=== PATIENT | male | born 1950 | race Caucasian/White ===

== ENCOUNTER 2016-04-16 09:47 | Outpatient (CLI) | payer OTHER ==
[~2016-04-16 09:47] MED LIST: ADVAIR HF1 IN; NEURONTIN300 MG PO; ZANTAC 150 MAX150 MG PO
--- NOTE | 2016-04-16 12:56 | DIAGNOSTIC IMAGING REPORT ---
PROCEDURE: US ART LOWER EXT WITH RUIZ-B/L INDICATION: LEG PAIN BILATERAL, initial encounter TECHNIQUE: Preexercise ABIs were performed. The patient was exercised (50 toe-ups) and postexercise ABIs were repeated followed by color Doppler duplex imaging of the lower extremities. COMPARISON: None. FINDINGS: RIGHT LOWER EXTREMITY: ABIs: Resting and post exercise ABIs: Posterior tibial 1.2 and dorsalis pedis 1.1. VESSELS: Minimal plaque formation. Normal triphasic wave form throughout the right lower extremity except for biphasic wave form of the profunda femoris. RIGHT LOWER EXTREMITY PEAK SYSTOLIC VELOCITIES: External iliac: 106 cm/second. Common femoral artery: 80 70 cm/second. Profunda femoral artery: 78 cm/second. Proximal superficial femoral artery: 107 cm/second. Mid superficial femoral artery: 89 cm/second. Distal superficial femoral artery: 97 cm/second. Popliteal artery: 51 cm/second. Proximal posterior tibial artery: 45 cm/second. Proximal anterior tibial artery: 75 cm/second. Distal posterior tibial artery: 50 cm/second. Dorsalis pedis artery: 82 cm/second. LEFT LOWER EXTREMITY: ABIs: Resting ABIs: Posterior tibial and dorsalis pedis both 1.1. Post exercise ABIs: Posterior tibial 1.2 and dorsalis pedis 1.1. VESSELS: Minimal plaque formation. Normal triphasic wave form throughout the left lower extremity except for biphasic wave form of the profunda femoris. LEFT LOWER EXTREMITY PEAK SYSTOLIC VELOCITIES: External iliac: 84 cm/second. Common femoral artery: 111 cm/second. Profunda femoral artery: 75 cm/second. Proximal superficial femoral artery: 106 cm/second. Mid superficial femoral artery: 98 cm/second. Distal superficial femoral artery: 109 cm/second. Popliteal artery: 68 cm/second. Proximal posterior tibial artery: 98 cm/second. Proximal anterior tibial artery: 88 cm/second. Distal posterior tibial artery: 58 cm/second. Dorsalis pedis artery: 66 cm/second. IMPRESSION: 1. No evidence of resting or postexercise insufficiency in both lower extremities. Minor atherosclerosis without evidence of high-grade stenosis.
== END 2016-04-16 23:00 ==
LOC: US SRH 09:47
DX: M79.604 Pain in right leg (principal); M79.605 Pain in left leg